=== PATIENT | male | born 1955 | race Caucasian/White ===

== ENCOUNTER 2017-11-12 20:45 | Emergency (ER) | payer MEDICAID ==
[~2017-11-12] VITALS: Ht 172.7 cm; Wt 75.0 kg
[2017-11-12] MEDS ORDERED: SODIUM CHLORIDE 0.9% 1,000 ML IV ONE (22:34)
[2017-11-12] MEDS ORDERED: KETOROLAC 30MG/ML VIAL IV STA (22:34)
[2017-11-12] MEDS ORDERED: FAMOTIDINE 20MG/2ML VIAL IV ONE (22:45)
[2017-11-13] MEDS ORDERED: SODIUM CHLORIDE 0.9% 1,000 ML IV ONE (00:19)
[2017-11-13 01:10] VITALS: BP 110/55
== END 2017-11-13 01:12 | disposition home or self-care (01) ==
LOC: ER 20:45
DX: M19.042 Primary osteoarthritis, left hand (principal); M19.041 Primary osteoarthritis, right hand; I95.9 Hypotension, unspecified; R00.1 Bradycardia, unspecified; F17.200 Nicotine dependence, unspecified, uncomplicated; F10.20 Alcohol dependence, uncomplicated; Y90.9 Presence of alcohol in blood, level not specified
CPT/HCPCS: 93005; 96361; 96374; 96375; 99285; J1885; J3490; J7030

== ENCOUNTER 2017-11-14 21:40 | Emergency (ER) | payer MEDICAID ==
[~2017-11-14] VITALS: Ht 172.7 cm; Wt 75.0 kg
[2017-11-15] MEDS ORDERED: KETOROLAC 30MG/ML VIAL IM ONE (03:00)
[2017-11-15 03:12] LABS: BASOPHILS % 0.8 % (0.0-2.0); EOSINOPHILS % 2.8 % (0.0-5.0); HEMATOCRIT. 40.4 % (42.0-52.0); LYMPHOCYTES % 35.3 % (20.0-50.0); MEAN CORPUSCULAR HEMOGLOBIN 32.5 pg (28.0-32.0); MEAN CORPUSCULAR VOLUME 93.5 fL (80.0-94.0); MEAN PLATELET VOLUME 6.4 fl (7.4-10.4); MONOCYTES % 8.4 % (2.0-8.0); NEUTROPHILS % 52.7 % (40.0-76.0); PLATELET 237 x1000/uL (130-400); RED BLOOD CELL COUNT 4.32 mill/uL (4.7-6.1); RED CELL DISTRIBUTION WIDTH 12.6 % (11.6-14.6)
[2017-11-15 03:18] LABS: CHLORIDE 103 mEq/L (98-107)
[2017-11-15 03:22] LABS: ETHANOL BLOOD 45 mg/dL
[2017-11-15 04:50] VITALS: BP 120/69
[2017-11-15 10:00] LABS: CLARITY URINE CLEAR (CLEAR); COLOR URINE YELLOW (YELLOW); KETONES URINE TRACE (NEGATIVE); LEUKOCYTE ESTERASE URINE NEGATIVE (NEGATIVE); NITRITE URINE NEGATIVE (NEGATIVE); OCCULT BLOOD URINE NEGATIVE (NEGATIVE); PROTEIN URINE NEGATIVE (NEGATIVE); SPECIFIC GRAVITY URINE 1.019 (1.005-1.030); UROBILINOGEN URINE 0.2 E.U./dL (0.2-1.0)
[2017-11-15 10:18] LABS: *AMPHETAMINES SCREEN URINE NEGATIVE (NEGATIVE)
[2017-11-15 10:19] LABS: *BARBITURATES SCREEN URINE NEGATIVE (NEGATIVE); *BENZODIAZEPINES SCREEN URINE NEGATIVE (NEGATIVE); *COCAINE SCREEN URINE NEGATIVE (NEGATIVE); CANNABINOID URINE SCREEN NEGATIVE (NEGATIVE); METHADONE URINE SCREEN NEGATIVE (NEGATIVE); OPIATES URINE SCREEN NEGATIVE (NEGATIVE)
[2017-11-15 10:23] LABS: PHENCYCLIDINE URINE SCREEN NEGATIVE (NEGATIVE)
== END 2017-11-15 05:15 | disposition home or self-care (01) ==
LOC: ER 21:40
DX: M19.042 Primary osteoarthritis, left hand (principal); M19.041 Primary osteoarthritis, right hand; E78.00 Pure hypercholesterolemia, unspecified; F17.200 Nicotine dependence, unspecified, uncomplicated
CPT/HCPCS: 36415; 80053; 80305; 81003; 85025; 96372; 99284; G0482; J1885; Z7610

== ENCOUNTER 2018-09-29 06:34 | Emergency (ER) | payer MEDICAID ==
[~2018-09-29] VITALS: Ht 175.3 cm; Wt 77.0 kg
[2018-09-29] MEDS ORDERED: KETOROLAC 60MG/2ML VIAL IM ONE (08:00)
[2018-09-29 09:00] VITALS: BP 135/65
[2018-10-14] MEDS ORDERED: ACET650S27 RC (11:08)
[2018-10-18] MEDS ORDERED: MULT-1146 MT (13:02)
[2018-10-18] MEDS ORDERED: THIA250T3 PO (13:03)
[2018-10-18] MEDS ORDERED: FOLI-43 MT (13:04)
[2018-10-18] MEDS ORDERED: TRAM150C25 PO (13:05)
== END 2018-09-29 10:11 | disposition home or self-care (01) ==
LOC: ER 06:34
DX: L03.114 Cellulitis of left upper limb (principal); L03.113 Cellulitis of right upper limb; M19.90 Unspecified osteoarthritis, unspecified site; E78.00 Pure hypercholesterolemia, unspecified
CPT/HCPCS: 96372; 99283; J1885; A4565

== ENCOUNTER 2018-10-22 08:19 | Emergency (ER) | payer MEDICAID ==
[~2018-10-22] VITALS: Ht 177.8 cm; Wt 85.0 kg
[~2018-10-22 08:19] MED LIST: FOLI-43 MT; MULT-1146 MT; THIA250T3 PO; TRAM150C25 PO
[2018-10-22] MEDS ORDERED: IBUPROFEN 600MG TABLET PO ONE (08:45)
[2018-10-22 09:23] VITALS: BP 127/72
== END 2018-10-22 09:34 | disposition home or self-care (01) ==
LOC: ER 08:19
DX: M25.532 Pain in left wrist (principal); M25.531 Pain in right wrist; G56.00 Carpal tunnel syndrome, unspecified upper limb; I25.2 Old myocardial infarction; Z79.899 Other long term (current) drug therapy; Z98.890 Other specified postprocedural states
CPT/HCPCS: 99283; Z7610

== ENCOUNTER 2018-10-27 16:37 | Emergency (ER) | payer MEDICAID ==
[~2018-10-27] VITALS: Ht 170.2 cm; Wt 75.0 kg
[2018-10-27] MEDS ORDERED: KETOROLAC 60MG/2ML VIAL IM STA (17:24)
[2018-10-27 17:40] VITALS: BP 112/77
[2018-10-27 17:50] LABS: CLARITY URINE CLEAR (CLEAR); COLOR URINE YELLOW (YELLOW); KETONES URINE NEGATIVE (NEGATIVE); LEUKOCYTE ESTERASE URINE TRACE (NEGATIVE); NITRITE URINE NEGATIVE (NEGATIVE); OCCULT BLOOD URINE NEGATIVE (NEGATIVE); PH URINE 5.5 (4.5-8.0); PROTEIN URINE NEGATIVE (NEGATIVE); SPECIFIC GRAVITY URINE 1.005 (1.005-1.030); UROBILINOGEN URINE 0.2 E.U./dL (0.2-1.0)
[2018-10-27 17:51] LABS: BASOPHILS % 1.3 % (0.0-2.0); CHLORIDE 102 mEq/L (98-107); EOSINOPHILS % 2.8 % (0.0-5.0); HEMATOCRIT. 39.9 % (42.0-52.0); HEMOGLOBIN. 13.7 g/dL (14.0-18.0); LYMPHOCYTES % 40.6 % (20.0-50.0); MEAN CORPUSCULAR HEMOGLOBIN 31.6 pg (28.0-32.0); MEAN CORPUSCULAR VOLUME 91.8 fL (80.0-94.0); MEAN PLATELET VOLUME 6.7 fl (7.4-10.4); MONOCYTES % 8.3 % (2.0-8.0); PLATELET 412 x1000/uL (130-400); RED BLOOD CELL COUNT 4.34 mill/uL (4.7-6.1); RED CELL DISTRIBUTION WIDTH 14.6 % (11.6-14.6)
[2018-10-27 17:55] LABS: ETHANOL BLOOD 78 mg/dL
[2018-10-27 18:00] LABS: *AMPHETAMINES SCREEN URINE NEGATIVE (NEGATIVE); *BARBITURATES SCREEN URINE NEGATIVE (NEGATIVE)
[2018-10-27 18:02] LABS: *BENZODIAZEPINES SCREEN URINE NEGATIVE (NEGATIVE); *COCAINE SCREEN URINE NEGATIVE (NEGATIVE)
[2018-10-27 18:03] LABS: CANNABINOID URINE SCREEN NEGATIVE (NEGATIVE); METHADONE URINE SCREEN NEGATIVE (NEGATIVE); OPIATES URINE SCREEN NEGATIVE (NEGATIVE); PHENCYCLIDINE URINE SCREEN NEGATIVE (NEGATIVE)
== END 2018-10-27 20:08 | disposition home or self-care (01) ==
LOC: ER 16:37
DX: M79.641 Pain in right hand (principal); M79.642 Pain in left hand; R07.89 Other chest pain; F10.20 Alcohol dependence, uncomplicated; Y90.3 Blood alcohol level of 60-79 mg/100 ml; I10 Essential (primary) hypertension; Z79.899 Other long term (current) drug therapy
CPT/HCPCS: 29125; 36415; 71045; 80048; 80305; 80307; 80320; 80329; 81003; 84484; 85025; 93005; 96372; 99284; J1885; G0480

== ENCOUNTER 2019-11-25 12:31 | Emergency (ER) | payer MEDICAID ==
[~2019-11-25] VITALS: Ht 172.7 cm; Wt 73.0 kg
[2019-11-25] MEDS ORDERED: ACETAMINOPHEN 325MG TABLET PO STA (12:42)
[2019-11-25 13:01] LABS: HEMATOCRIT. 36.3 % (42.0-52.0); HEMOGLOBIN. 12.3 g/dL (14.0-18.0); MEAN CORPUSCULAR HEMOGLOBIN 32.4 pg (28.0-32.0); MEAN CORPUSCULAR VOLUME 95.4 fL (80.0-94.0); MEAN PLATELET VOLUME 6.1 fl (7.4-10.4); PLATELET 420 x1000/uL (130-400); RED CELL DISTRIBUTION WIDTH 13.3 % (11.6-14.6)
[2019-11-25 13:08] LABS: CHLORIDE 107 mEq/L (98-107)
[2019-11-25 13:15] LABS: ETHANOL BLOOD < 10 mg/dL
[2019-11-25 13:56] LABS: PLATELET ESTIMATE INCREASED
[2019-11-25 14:38] VITALS: BP 123/53
== END 2019-11-25 14:42 | disposition home or self-care (01) ==
LOC: ER 12:31
DX: R53.1 Weakness (principal); E86.0 Dehydration; I11.0 Hypertensive heart disease with heart failure; I50.9 Heart failure, unspecified
CPT/HCPCS: 36415; 80053; 80307; 80320; 80329; 85025; 99283; G0480